=== PATIENT | female | born 1965 | race African-American/Black ===

== ENCOUNTER 2019-05-31 12:39 | Emergency (ER) | payer OTHER ==
[~2019-05-31] VITALS: Ht 157.5 cm; Wt 54.4 kg
[~2019-05-31 12:39] MED LIST: ALBUTEROL SULF8.5 GM INH; ATIVAN1 MG PO; AZITHROMYCIN250 MG ORAL; FLEXERIL10 MG PO; KEFLEX500 MG PO; NKM; NORCO 5-325 TA1 EACH ORAL; NORCO 5-325 TA1 EACH PO; PROMETHAZINE-C118 M1 ORAL; PSEUDOEPHEDRINE30 MG PO; ROBAXIN-750750 MG PO; TRAMADOL HCL50 MG PO; WELLBUTRIN100 MG ORAL; XOPENEX HFA15 GM IH; ZITHROMAX250 MG ORAL; ZYRTEC10 MG ORAL; no home meds
[2019-05-31 13:00] VITALS: BP 124/80
--- NOTE | 2019-05-31 13:00 | NUR ---
ED Nurse Note: pt walked in due to upper and lower bacl pain started 2 days ago when she fell, pt denies head trauma. pt was using naproxen for pain but not helping. will continue to monitor.
[2019-05-31] MEDS ORDERED: traMADol 50mg tab ORAL ONE (13:45)
--- NOTE | 2019-05-31 13:51 | Emergency Room Report ---
History of Present Illness General Chief Complaint: Lower Back Pain or Injury Source: Patient (Celi Jennings) Present Illness HPI 54 YO Female presents to the ED c/o 03/01 in severity progressive right sided upper and lower back pain s/p mechanical slip and fall yesterday. pt. denies hitting her head, she denies having a LOC. She denies midline neck or back pain. Denies N/V. Denies numbness tingling or loss of sensation or gross motor movements of the extremities, incontinence of bowel or bladder. Denies CP, Palpitations, AMS, dizziness, Changes in Vision, weakness or a sudden severe headache. Pain is exacerbated up on certain movements of the torso or raising/ using right arm. Denies right arm pain. Denies bony tenderness/pain. difficult to find POC at times. pt. reports initially just feeling dull/ache, however symptoms were worse upon awakening this am. Has been taking Naproxen and Aspercreme with only minimal relief. (Celi Jennings) Allergies: Coded Allergies: METOCLOPRAMIDE HCL (Verified Allergy, Intermediate, TOXIC REACTION, ) SULFAMETHOXAZOLE (Verified Allergy, Intermediate, ITCH, 10/18/12) TRIMETHOPRIM (Verified Allergy, Intermediate, ITCH, 10/18/12) Patient History Past Medical History: see triage record Past Surgical History: none Pertinent Family History: none Now: No Reviewed Nursing Documentation: PMH: Agreed; PSxH: Agreed (Celi Jennings) Nursing Documentation-PMH Past Medical History: No Stated History (Celi Jennings) Review of Systems All Other Systems: negative except mentioned in HPI (Celi Jennings) Physical Exam Vital Signs Date Time Temp Pulse Resp B/P (MAP) Pulse Ox O2 Delivery O2 Flow Rate FiO2 05/31/19 12:46 97.2 78 16 124/80 (95) 98 Room Air Sp02 EP Interpretation: reviewed, normal General Appearance: no apparent distress, alert, GCS 15, non-toxic Head: normocephalic, atraumatic Eyes: bilateral eye normal inspection, bilateral eye PERRL ENT: hearing grossly normal, normal voice Neck: full range of motion, no bony tend, tender lateral - right Respiratory: lungs clear, normal breath sounds, no wheezing, speaking full sentences Cardiovascular #1: regular rate, rhythm Gastrointestinal: non tender, soft Musculoskeletal: back normal, gait/station normal, normal range of motion, tender - ttp and swelling to the right trapezius. Right sided paraspinal and upper gluteal TTP, FROM with exacerbation of pain temporarily in certain flexed positions, no LE weakness, pt. is NVI, no erythema, no midline bony ttp, no step -offs or obvious deformity. Neurologic: alert, oriented x3, responsive, motor strength/tone normal, sensory intact, normal gait, speech normal, grossly normal Psychiatric: judgement/insight normal Skin: other - no (Celi Jennings) Medical Decision Making PA Attestation Dr. Chiang Is my supervising Physician whom patient management has been discussed with. (Celi Jennings) PA Attestation Medicare Attestation I discussed the care of this patient with Celi LOPEZ above on 05/31/2019. I agree with the findings and plan as documented in the note. (Trent Chiang M.D.) Diagnostic Impression: Primary Impression: Back pain Qualified Codes: M54.5 - Low back pain Additional Impression: Muscle spasm of back ER Course 54 YO Female presents to the ED c/o 03/01 in severity progressive right sided upper and lower back pain s/p mechanical slip and fall yesterday. pt. denies hitting her head, she denies having a LOC. She denies midline neck or back pain. Denies N/V. Denies numbness tingling or loss of sensation or gross motor movements of the extremities, incontinence of bowel or bladder. Denies CP, Palpitations, AMS, dizziness, Changes in Vision, weakness or a sudden severe headache. Pain is exacerbated up on certain movements of the torso or raising/ using right arm. Denies right arm pain. Denies bony tenderness/pain. difficult to find POC at times. pt. reports initially just feeling dull/ache, however symptoms were worse upon awakening this am. Has been taking Naproxen and Aspercreme with only minimal relief. Ddx considered: Contusion, fracture, sprain/strain, spinal chord injury, sciatica, cauda equina Vital signs reviewed and are WNL during ED visit. Pt. is afebrile with no signs of infection No saddle anesthesia noted, Pt. denies incontinence , Neurovascular is intact Mild Tenderness to palpation to right paraspinal muscles of the lower back without midline tenderness. ORDERS: none warranted at this time. INTERVENTIONS: - Lidoderm TP -Tramadol PO -I do not identify an emergent condition at this time. With current presentation , pt. is stable for close outpatient follow up and conservative treatment. D/ w pt. to return promptly to ED with worsening or new symptoms.- Pt. verbalizes' understanding and agreement with proposed treatment plan. DISCHARGE: At this time pt. is stable for d/c to home. Will provide printed patient care instructions, and any necessary prescriptions. Care plan and follow up instructions have been discussed with the patient prior to discharge. (Celi Jennings) Last Vital Signs Date Time Temp Pulse Resp B/P (MAP) Pulse Ox O2 Delivery O2 Flow Rate FiO2 05/31/19 13:00 97.2 78 16 124/80 98 Room Air Status: improved (Celi Jennings) Disposition: HOME, SELF-CARE Condition: Stable Scripts Acetaminophen* (TYLENOL EXTRA STRENGTH*) 500 Mg Tablet 500 MG ORAL Q6H, #20 TAB 0 Refills Prov: Celi Jennings 05/31/19 Methocarbamol* (ROBAXIN-750*) 750 Mg Tablet 750 MG PO QID, #28 TAB 0 Refills Prov: Celi Jennings 05/31/19 Lidocaine (Lidoderm) 1 Each Adh..patch 1 PATCH TOPIC DAILY, #30 PATCH 0 Refills Patch(es) may remain in place for up to 12 hours in any 24-hour period. Prov: Celi Jennings 05/31/19 Referrals: NON PHYSICIAN (PCP) Patient Instructions: Back Pain, Adult Additional Instructions: Take medications as directed. Follow up with a Primary Care Provider in 3-5 days, even if your symptoms have resolved. --Please review list of primary care clinics, if you do not already have a primary care provider Return sooner to ED if new symptoms occur, or current symptoms become worse. Do not drink alcohol, drive, or operate heavy machinery while taking Robaxin ( Muscle Relaxers) as this may cause drowsiness. - Please note that this Emergency Department Report was dictated using [employer] and evaluation manager technology software, occasionally this can lead to erroneous entry secondary to interpretation by the dictation equipment. Celi Jennings May 31, 2019 13:51 Trent Chiang M.D. Jun 01, 2019 07:40
--- NOTE | 2019-05-31 14:03 | NUR ---
ED Nurse Note: pt was medicated qas ordered. pt able to tolerate
[2019-05-31] MEDS ORDERED: ROBAXIN-750750 MG PO (14:10)
[2019-05-31] MEDS ORDERED: LIDODERM700 M1 TOPIC (14:10)
[2019-05-31] MEDS ORDERED: TYLENOL EXTRA500 MG ORAL (14:10)
[2019-05-31 14:19] VITALS: BP 124/80
--- NOTE | 2019-05-31 14:19 | NUR ---
ER DISCHARGE NOTE: Patient is cleared to be discharged per ERMD, pt is aox4, on room air, with stable vital signs. pt was given dc and prescription instructions, pt was able to verbalize understanding, pt id band removed without complications. pt is able to ambulate with steady gait. pt took all belongings.
== END 2019-05-31 14:19 | disposition home or self-care (01) ==
LOC: EMR 13:20
DX: M54.5 Low back pain (principal); M62.830 Muscle spasm of back; Z88.2 Allergy status to sulfonamides
CPT/HCPCS: 99283

== ENCOUNTER 2019-09-04 15:11 | Emergency (ER) | payer OTHER ==
[~2019-09-04] VITALS: Ht 154.9 cm; Wt 56.7 kg
[~2019-09-04 15:11] MED LIST changes: +LIDODERM700 M1 TOPIC; +TYLENOL EXTRA500 MG ORAL
--- NOTE | 2019-09-04 15:28 | NUR ---
ED Nurse Note: PT WALKED IN TO ER TODAY FROM HOME. AOX4. PT C/O PAIN, REDNESS, AND SWELLING TO LEFT LOWER EXTREMITY 2-3 DAYS AGO. PT DENIES INJURY OR TRAUMA. FULL ROM OF EXTREMITY, CIRCULATION AND SENSATION INTACT. PT STATES SHE WENT TO AN ER IN [place] LAST WEEK DUE TO SIMILAR SYMPTOMS ON THE RIGHT LOWER EXTREMITY AND WAS TOLD IT WAS DUE TO INSECT BITES. PT WAS DISCHARGED WITHOUT MEDICATION AND TOLD TO LET IT PASS. PT BELIEVES SYMPTOMS ON THE RIGHT LOWER EXTREMITY MAY BE DUE TO SAME REASON. GAIT STEADY.
[2019-09-04 15:30] VITALS: BP 124/62
[2019-09-04] MEDS ORDERED: Vancomycin 1 GM in NS 275 ML IVPB ONE (16:00)
[2019-09-04 16:53] LABS: BASOPHILS % (AUTO) 0.9 % (0.0-2.0); EOSINOPHILS % (AUTO) 1.6 % (0.0-3.0); HEMATOCRIT 39.9 % (37.0-47.0); HEMOGLOBIN 13.1 G/DL (12.0-16.0); LYMPHOCYTES % (AUTO) 38.5 % (20.0-45.0); MEAN CORPUSCULAR VOLUME 89 FL (80-99); MONOCYTES % (AUTO) 6.5 % (1.0-10.0); NEUTROPHILS % (AUTO) 52.5 % (45.0-75.0); PLATELET COUNT 226 K/UL (150-450); RED BLOOD COUNT 4.48 M/UL (4.20-5.40); RED CELL DISTRIBUTION WIDTH 10.8 % (11.6-14.8); WHITE BLOOD COUNT 6.6 K/UL (4.8-10.8)
[2019-09-04 16:54] LABS: ANION GAP 6 mmol/L (5-15); BLOOD UREA NITROGEN 16 mg/dL (7-18); CALCIUM 9.6 MG/DL (8.5-10.1); CARBON DIOXIDE 29 MMOL/L (21-32); CHLORIDE 106 MMOL/L (98-107); CREATININE 0.9 MG/DL (0.55-1.30); POTASSIUM 3.7 MMOL/L (3.5-5.1); SODIUM 141 MMOL/L (136-145)
[2019-09-04 16:59] LABS: ALANINE AMINOTRANSFERASE 33 U/L (12-78); ALKALINE PHOSPHATASE 71 U/L (46-116); ASPARTATE AMINO TRANSFERASE 25 U/L (15-37); BILIRUBIN,TOTAL 0.3 MG/DL (0.2-1.0)
--- NOTE | 2019-09-04 17:21 | Emergency Room Report ---
History of Present Illness General Chief Complaint: Pain Source: Patient Present Illness HPI This patient states that she has noticed redness and swelling on her left lower leg. She states she noticed this about 3 days ago and states that the symptoms are worsening. She also notes that she had been bit by a spider about a week ago and was seen at another hospital. She states that area had initially resolved which involved her knee. However, the area of redness and swelling is in the location of the previous spider bite. She denies fever or chills. She denies nausea or vomiting. She denies chest pain or shortness of breath. She has no other complaints. Allergies: Coded Allergies: METOCLOPRAMIDE HCL (Verified Allergy, Intermediate, TOXIC REACTION, ) SULFAMETHOXAZOLE (Verified Allergy, Intermediate, ITCH, 10/18/12) TRIMETHOPRIM (Verified Allergy, Intermediate, ITCH, 10/18/12) Patient History Past Medical History: none, see triage record Social History: Denies: smoking, alcohol use, drug use Now: No Reviewed Nursing Documentation: PMH: Agreed; PSxH: Agreed Review of Systems All Other Systems: negative except mentioned in HPI Physical Exam Vital Signs Date Time Temp Pulse Resp B/P (MAP) Pulse Ox O2 Delivery O2 Flow Rate FiO2 09/04/19 15:18 98.2 86 18 128/66 (86) 96 Room Air Sp02 EP Interpretation: reviewed, normal General Appearance: no apparent distress, alert, GCS 15, non-toxic Head: normocephalic, atraumatic Eyes: bilateral eye normal inspection, bilateral eye PERRL ENT: hearing grossly normal, normal pharynx, no angioedema, normal voice Neck: full range of motion, supple/symm/no masses Respiratory: chest non-tender, lungs clear, normal breath sounds, no respiratory distress, no retraction, no accessory muscle use, speaking full sentences Cardiovascular #1: regular rate, rhythm, no edema Gastrointestinal: normal bowel sounds, non tender, soft, non-distended, no guarding, no rebound Rectal: deferred Musculoskeletal: back normal, gait/station normal, normal range of motion, other - Multiple areas of warmth, erythema and swelling over L. lower leg. Largest area L. medial calve. No fluctuance. Neurologic: alert, oriented x3, responsive, motor strength/tone normal, sensory intact, speech normal Psychiatric: judgement/insight normal, memory normal, mood/affect normal, no suicidal/homicidal ideation Skin: other - See above in MSK exam. Medical Decision Making Diagnostic Impression: Primary Impression: Cellulitis ER Course This patient has findings on physical exam consistent with cellulitis. There is no systemic symptoms and the patient is nontoxic and well-appearing overall. Laboratory work-up is benign. I did give the patient an IV dose of vancomycin and I will also place the patient on oral antibiotics. I feel that this patient is a candidate for outpatient antibiotic therapy. However, the patient is given close return precautions and follow-up instructions. Laboratory Tests Test 09/04/19 16:23 White Blood Count 6.6 K/UL (4.8-10.8) Red Blood Count 4.48 M/UL (4.20-5.40) Hemoglobin 13.1 G/DL (12.0-16.0) Hematocrit 39.9 % (37.0-47.0) Mean Corpuscular Volume 89 FL (80-99) Mean Corpuscular Hemoglobin 29.3 PG (27.0-31.0) Mean Corpuscular Hemoglobin Concent 32.8 G/DL (32.0-36.0) Red Cell Distribution Width 10.8 % (11.6-14.8) L Platelet Count 226 K/UL (150-450) Mean Platelet Volume 7.3 FL (6.5-10.1) Neutrophils (%) (Auto) 52.5 % (45.0-75.0) Lymphocytes (%) (Auto) 38.5 % (20.0-45.0) Monocytes (%) (Auto) 6.5 % (1.0-10.0) Eosinophils (%) (Auto) 1.6 % (0.0-3.0) Basophils (%) (Auto) 0.9 % (0.0-2.0) Sodium Level 141 MMOL/L (136-145) Potassium Level 3.7 MMOL/L (3.5-5.1) Chloride Level 106 MMOL/L (98-107) Carbon Dioxide Level 29 MMOL/L (21-32) Anion Gap 6 mmol/L (5-15) Blood Urea Nitrogen 16 mg/dL (7-18) Creatinine 0.9 MG/DL (0.55-1.30) Estimate Glomerular Filtration Rate > 60 mL/min (>60) Glucose Level 88 MG/DL (74-106) Calcium Level 9.6 MG/DL (8.5-10.1) Total Bilirubin 0.3 MG/DL (0.2-1.0) Aspartate Amino Transferase (AST) 25 U/L (15-37) Alanine Aminotransferase (ALT) 33 U/L (12-78) Alkaline Phosphatase 71 U/L (46-116) Total Protein 8.2 G/DL (6.4-8.2) Albumin 4.0 G/DL (3.4-5.0) Globulin 4.2 g/dL Albumin/Globulin Ratio 1.0 (1.0-2.7) Last Vital Signs Date Time Temp Pulse Resp B/P (MAP) Pulse Ox O2 Delivery O2 Flow Rate FiO2 09/04/19 15:30 98.4 82 16 124/62 98 Room Air Status: improved Disposition: HOME, SELF-CARE Condition: Improved Referrals: NON PHYSICIAN (PCP) Светлана Quiroz DO Sep 04, 2019 17:21
[2019-09-04] MEDS ORDERED: DOXYCYCLINE MO100 MG ORAL (17:33)
[2019-09-04 17:58] VITALS: BP 122/64
--- NOTE | 2019-09-04 17:58 | NUR ---
ED Nurse Note: PT LAYING PEACEFULLY IN BED IN NAD. AOX4. PRESCRIPTION AND DISCHARGE PAPERWORK EXPLAINED TO PT. PT VERBALIZES UNDERSTANDING AND ALL QUESTIONS ANSWERED. PRESCRIPTION AND DISCHARGE PAPERWORK GIVEN TO PT, IV AND ID WRISTBAND REMOVED. PT WALKED OUT OF ER WITH STEADY GAIT AND ALL BELONGINGS.
== END 2019-09-04 18:01 | disposition home or self-care (01) ==
LOC: EMR 15:47
DX: L03.116 Cellulitis of left lower limb (principal); Z88.1 Allergy status to other antibiotic agents; Z88.8 Allergy status to other drugs, medicaments and biological substances
CPT/HCPCS: 36415; 80053; 85025; 96365; J3370; J7050; Z7502; 99284

== ENCOUNTER 2019-10-11 10:13 | Emergency (ER) | payer OTHER ==
[~2019-10-11] VITALS: Ht 154.9 cm; Wt 59.0 kg
[~2019-10-11 10:13] MED LIST changes: +DOXYCYCLINE MO100 MG ORAL
[2019-10-11] MEDS ORDERED: UNOBMED (10:26)
[2019-10-11 10:30] VITALS: BP 135/67
--- NOTE | 2019-10-11 10:30 | NUR ---
ED Nurse Note: Pt is AAOX4, vss. no acute distress. Lungs are clear bilaterally and pt has a rough unproductive cough. Pt is cooperative and is acting abnomaly. Pt is suspicious of the staff and thinks we are talkign about her. Pt has no risk of harming herself or others.
[2019-10-11] MEDS ORDERED: Albuterol ud Inhalation HHN ONE (11:00)
--- NOTE | 2019-10-11 11:17 | NUR ---
ED Nurse Note:flu swab sent to labs, pt. receoved breathing treatment and chest x-ray done
--- NOTE | 2019-10-11 11:32 | Diagnostic Imaging Report ---
Indication: Cough Technique: 2 views of the chest Comparison: 01/17/2014 single view chest Findings: Lungs and pleural spaces are clear. The heart size is normal. The bones are unremarkable. No significant interim change. Impression: Negative
--- NOTE | 2019-10-11 11:38 | Emergency Room Report ---
History of Present Illness General Chief Complaint: Upper Respiratory Illness Source: Medical Record Present Illness HPI 54-year-old female with history of allergies who presents to emergency room with coughing, and congestion for 2 weeks. Patient was trying [id number] Robitussin and NyQuil with no improvement. Patient talked to pharmacist who stated she should come to get evaluated as symptoms have been persistent for 2 weeks. Patient has a long-standing history of allergies and reports during change of season or cold weather she gets similar symptoms. Patient also states that she has postnasal drip. Patient had a sensation of wheezing yesterday. Patient does not smoke. Patient has no nausea no vomiting no fevers no chills Allergies: Coded Allergies: METOCLOPRAMIDE HCL (Verified Allergy, Intermediate, TOXIC REACTION, ) SULFAMETHOXAZOLE (Verified Allergy, Intermediate, ITCH, 10/18/12) TRIMETHOPRIM (Verified Allergy, Intermediate, ITCH, 10/18/12) Patient History Last Menstrual Period: MENAUPOSAL Review of Systems Constitutional: Denies: chills, fever Eye: Denies: blurred vision, double vision ENT: Reports: nose congestion, throat pain; Denies: ear discharge Respiratory: Reports: cough Cardiovascular: Denies: chest pain Gastrointestinal: Denies: abdominal pain, diarrhea, nausea Genitourinary: Denies: dysuria, hematuria Musculoskeletal: Denies: back pain, joint pain Skin: Denies: rash Neurological: Denies: headache, seizure Physical Exam Vital Signs Date Time Temp Pulse Resp B/P (MAP) Pulse Ox O2 Delivery O2 Flow Rate FiO2 10/11/19 10:21 98.1 80 18 130/68 (88) 96 Room Air 10/11/19 11:05 21 Sp02 EP Interpretation: reviewed, normal General Appearance: no apparent distress, alert, GCS 15, non-toxic Head: normocephalic, atraumatic ENT: hearing grossly normal, no angioedema, normal voice, dry mucus membranes, pharyngeal erythema Neck: full range of motion, supple/symm/no masses Respiratory: chest non-tender, lungs clear, normal breath sounds, speaking full sentences Cardiovascular #1: regular rate, rhythm, no edema Cardiovascular #2: 2+ radial (R), 2+ radial (L) Musculoskeletal: back normal, gait/station normal, normal range of motion, non- tender Neurologic: alert, oriented x3, responsive, speech normal Skin: normal inspection, warm/dry Medical Decision Making ER Course Patient presenting with cough for 2 weeks duration not associated with fevers however noted to be not improving with [id number] medication. Patient's chest x-ray within normal limits. Patient at this time stable for discharge given stable vital signs and in no respiratory or acute distress. Patient recommend to follow-up with primary care doctor recommend albuterol inhaler, Sudafed and allergy medication. Microbiology Date/Time Source Procedure Growth Status 10/11/19 11:10 Nasal Not Otherwise Specified - Final Complete 10/11/19 11:10 Nasal Not Otherwise Specified - Final Complete Chest X-Ray Diagnostic Results Chest X-Ray Diagnostic Results : Chest X-Ray Ordered: Yes # of Views/Limited/Complete: 1 View Indication: Shortness of Breath EP Interpretation: Yes PA Xray: Interpretation reviewed Impression: No acute disease Last Vital Signs Date Time Temp Pulse Resp B/P (MAP) Pulse Ox O2 Delivery O2 Flow Rate FiO2 10/11/19 11:05 69 20 99 Room Air 21 73 20 98 10/11/19 10:30 98.4 135/67 Disposition: HOME, SELF-CARE Condition: Stable Scripts Cetirizine Hcl* (ZYRTEC*) 10 Mg Tablet 10 MG ORAL DAILY, #30 TAB 0 Refills Prov: Henrry Grier M.D. 10/11/19 Albuterol Sulfate* (ALBUTEROL SULFATE MDI*) 8.5 Gm Hfa.aer.ad 2 PUFF INH Q4H PRN for cough/wheezing, #1 EA 0 Refills Prov: Henrry Grier M.D. 10/11/19 Pseudoephedrine Hcl (SUDAFED 12-HOUR) 120 Mg Tablet.er 120 MG PO EVERY 12 HOURS for 10 Days, #20 TAB Prov: Henrry Grier M.D. 10/11/19 Referrals: [facility]ERR[facility] (PCP) Henrry Grier M.D. Oct 11, 2019 11:38
[2019-10-11] MEDS ORDERED: ZYRTEC10 MG ORAL (11:41)
[2019-10-11] MEDS ORDERED: ALBUTEROL SULF8.5 GM INH (11:41)
[2019-10-11] MEDS ORDERED: SUDAFED 12-HOU120 MG PO (11:41)
--- NOTE | 2019-10-11 11:41 | NUR ---
ED Nurse Note: X-ray and breathing tx completed.
[2019-10-11 11:53] VITALS: BP 130/60
== END 2019-10-11 11:55 | disposition home or self-care (01) ==
LOC: EMR 11:20
DX: R05 Cough (principal); Z88.2 Allergy status to sulfonamides; Z88.8 Allergy status to other drugs, medicaments and biological substances
CPT/HCPCS: 71046; 86710; 94640; Z7502; 99284